=== PATIENT | female | born 1970 | race Two or more races ===

== ENCOUNTER 2017-09-01 15:25 | Emergency (ER) | payer OTHER ==
[2017-09-01 15:34] VITALS: BP 125/68; BMI 29.9
--- NOTE | 2017-09-01 16:03 | PDOC ---
History of Present Illness - General History Source: Patient Exam Limitations: No Limitations - History of Present Illness Initial Comments: 09/01/17 16:05 The patient is a 47 year old female, with no significant past medical history who presents to the emergency department with cough, fever, and body chills/ aches for about 2 days. She reports having sensations of being cold. She denies getting the flu shot this year. She has additional complaints of chest and throat pain. The patient ranks her pain a 8/10 in pain intensity. She reports taking Advil with no alleviation of her pain. She denies recent chills, headache or dizziness. She denies recent nausea, vomit, diarrhea or constipation. She denies recent dysuria, frequency, urgency or hematuria. She denies recent shortness of breath. Allergies: NKA Past surgical history: None reported. Social history: Nonsmoker. Denies EtOH use and recreational drug use. <Frank Ho - Last Filed: 09/01/17 16:05> <Tiffany Hansen - Last Filed: 09/01/17 21:02> - General Chief Complaint: Respiratory Stated Complaint: COUGH, BODY ACHES Time Seen by Provider: 09/01/17 15:42 Past History <Frank Ho - Last Filed: 09/01/17 16:05> - Past Medical History COPD: No Other medical history: DENIES - Suicide/Smoking/Psychosocial Hx Smoking Status: No Smoking History: Never smoked Have you smoked in the past 12 months: No Number of Cigarettes Smoked Daily: 0 Hx Alcohol Use: No Drug/Substance Use Hx: No <Tiffany Hansen - Last Filed: 09/01/17 21:02> - Past Medical History Allergies/Adverse Reactions: Allergies Allergy/AdvReac Type Severity Reaction Status Date / Time No Known Allergies Allergy Verified 09/01/17 15:31 Home Medications: Ambulatory Orders Ibuprofen [Motrin -] 600 mg PO TID PRN #21 tablet 09/01/17 Oseltamivir Phosphate [Tamiflu -] 75 mg PO BID #10 capsule 09/01/17 Review of Systems - Review of Systems Able to Perform ROS?: Yes Comments:: 09/01/17 16:05 GENERAL/CONSTITUTIONAL: +fever and chills. No weakness. +body aches. HEAD, EYES, EARS, NOSE AND THROAT: No change in vision. No ear pain or discharge. +sore throat. CARDIOVASCULAR: +chest pain No shortness of breath. RESPIRATORY: No cough, wheezing, or hemoptysis. GASTROINTESTINAL: No nausea, vomiting, diarrhea or constipation. GENITOURINARY: No dysuria, frequency, or change in urination. MUSCULOSKELETAL: No joint or muscle swelling or pain. No neck or back pain. SKIN: No rash NEUROLOGIC: No headache, vertigo, loss of consciousness, or change in strength/ sensation. ENDOCRINE: No increased thirst. No abnormal weight change. HEMATOLOGIC/LYMPHATIC: No anemia, easy bleeding, or history of blood clots. ALLERGIC/IMMUNOLOGIC: No hives or skin allergy. <Frank Ho - Last Filed: 09/01/17 16:05> *Physical Exam - Vital Signs Last Vital Signs Temp Pulse Resp BP Pulse Ox 100 F H 92 H 18 125/68 96 09/01/17 15:25 09/01/17 15:25 09/01/17 15:25 09/01/17 15:25 09/01/17 15:25 - Physical Exam Comments: 09/01/17 16:05 GENERAL: Awake, alert, and fully oriented, appears ill but non-toxic HEAD: No signs of trauma EYES: PERRLA, EOMI, sclera anicteric, conjunctival injection ENT: Auricles normal inspection, hearing grossly normal, nares patent, oropharynx clear without exudates. Dry mucosa NECK: Normal ROM, supple, no lymphadenopathy, JVD, or masses LUNGS: Intermittent barking cough. Breath sounds equal, clear to auscultation bilaterally. No wheezes, and no crackles HEART: Regular rate and rhythm, normal S1 and S2, no murmurs, rubs or gallops ABDOMEN: Soft, nontender, normoactive bowel sounds. No guarding, no rebound. No masses EXTREMITIES: Normal range of motion, no edema. No clubbing or cyanosis. No cords, erythema, or tenderness NEUROLOGICAL: Cranial nerves II through XII grossly intact. Normal speech, normal gait SKIN: Warm, Dry, normal turgor, no rashes or lesions noted. <Frank Ho - Last Filed: 09/01/17 16:05> - Vital Signs Last Vital Signs Temp Pulse Resp BP Pulse Ox 100 F H 92 H 18 125/68 96 09/01/17 15:25 09/01/17 15:25 09/01/17 15:25 09/01/17 15:25 09/01/17 15:25 <Tiffany Hansen - Last Filed: 09/01/17 21:02> *DC/Admit/Observation/Transfer - Attestations Scribe Attestion: 09/01/17 16:05 Documentation prepared by Frank Ho, acting as medical driver for Tiffany Hansen MD. <Frank Ho - Last Filed: 09/01/17 16:05> - Discharge Dispostion Admit: No <Tiffany Hansen - Last Filed: 09/01/17 21:02> Diagnosis at time of Disposition: Upper respiratory infection Qualifiers: URI type: unspecified URI Qualified Code(s): J06.9 - Acute upper respiratory infection, unspecified - Discharge Dispostion Disposition: HOME Condition at time of disposition: Stable - Prescriptions Prescriptions: Ibuprofen [Motrin -] 600 mg PO TID PRN #21 tablet PRN Reason: Fever Oseltamivir Phosphate [Tamiflu -] 75 mg PO BID #10 capsule - Patient Instructions Printed Discharge Instructions: DI for Viral Upper Respiratory Infection -- Adult, DI for Influenza -- Adult
[2017-09-01] MEDS ORDERED: IBUPROFEN 600 MG TABLET (FP) PO ONE ×2 (16:04→16:12)
[2017-09-01] MEDS ORDERED: ALBUTEROL SO4 0.083% IH SOL 2.5 MG/3 ML VIAL.NEB. NEB ONE (16:04)
[2017-09-01 19:56] VITALS: PULSE 73; TEMP 98.5
== END 2017-09-01 19:45 | disposition home or self-care (01) ==
LOC: FER 15:25
PROC: 3E0F7GC Introduction of Other Therapeutic Substance into Respiratory Tract, Via Natural or Artificial Opening (ICD-10-PCS; principal; 2017-09-01)
DX: J06.9 Acute upper respiratory infection, unspecified (principal)
CPT/HCPCS: 71046-TC; 87804; 99283-25

== ENCOUNTER 2020-12-29 11:18 | Emergency (ER) | payer OTHER ==
[2020-12-29 11:23] VITALS: TEMP 99; BMI 29.9
[2020-12-29] MEDS ORDERED: LACTATED RINGERS SOLUTION 1000 ML INFUS.BAG IV ONE (11:41)
[2020-12-29] MEDS ORDERED: METOCLOPRAMIDE HCL INJECTION 10 MG/2 ML VIAL IVPUSH ONE (11:41)
[2020-12-29] MEDS ORDERED: METOCLOPRAMIDE HCL INJECTION 10 MG/2 ML VIAL ONE (11:43)
[2020-12-29 12:04] LABS: BASO % 3.3 % (0-2.0); EOS % 2.2 % (0-4.5); HEMATOCRIT 38.7 % (32.4-45.2); HEMOGLOBIN 12.7 GM/dl (10.7-15.3); MCH 28.5 pg (25.7-33.7); MCHC 32.9 g/dl (32.0-36.0); MEAN CELL VOLUME 86.9 fl (80-96); MEAN PLT VOLUME 7.7 fl (7.5-11.1); MONO % 7.4 % (3.8-10.2); NEUT % 45.1 % (42.8-82.8); PLATELET COUNT 232 K/MM3 (134-434); RBC 4.46 M/mm3 (3.60-5.2); RDW 13.1 % (11.6-15.6); WHITE BLOOD COUNT 4.9 K/mm3 (4.0-10.8)
[2020-12-29 12:14] LABS: CREATININE 0.7 mg/dl (0.55-1.3)
[2020-12-29 13:44] VITALS: BP 142/68; PULSE 59
== END 2020-12-29 13:45 | disposition home or self-care (01) ==
LOC: FER 11:18
PROC: 3E033NZ Introduction of Analgesics, Hypnotics, Sedatives into Peripheral Vein, Percutaneous Approach (ICD-10-PCS; principal; 2020-12-29)
DX: R42 Dizziness and giddiness (principal)
CPT/HCPCS: 36415; 80048; 85025; 99284-25

== ENCOUNTER 2021-06-09 14:39 | Emergency (ER) | payer OTHER ==
[2021-06-09 15:06] VITALS: BP 140/90; PULSE 73; TEMP 98.5; BMI 27.4
[2021-06-09] MEDS ORDERED: SODIUM CHLORIDE 1,000 ML IV ONE (15:07)
[2021-06-09] MEDS ORDERED: KETOROLAC TROMETHAMINE 30 MG/1 ML VIAL IVPUSH ONE (15:07)
[2021-06-09] MEDS ORDERED: KETOROLAC TROMETHAMINE 15 MG/ML VIAL ONE ×2 (15:17→15:26)
[2021-06-09 15:31] LABS: EPITHELIAL CELLS FEW /hpf
[2021-06-09 15:46] LABS: HEMATOCRIT 39.2 % (32.4-45.2); HEMOGLOBIN 12.9 GM/dl (10.7-15.3); MCH 28.8 pg (25.7-33.7); MEAN CELL VOLUME 87.2 fl (80-96); MEAN PLT VOLUME 7.6 fl (7.5-11.1); PLATELET COUNT 225 10^3/uL (134-434); RBC 4.49 M/mm3 (3.60-5.2); RDW 12.8 % (11.6-15.6); WHITE BLOOD COUNT 5.4 K/mm3 (4.0-10.8)
[2021-06-09 15:54] LABS: ALBUMIN 3.8 g/dl (3.4-5.0); BILIRUBIN,TOTAL 0.5 mg/dl (0.2-1); CALCIUM 9.2 mg/dl (8.5-10); CREATININE 0.7 mg/dl (0.55-1.3); TOT PROT 7.6 g/dl (6.4-8.2)
[2021-06-09 17:07] LABS: PLATELET ESTIMATE ADEQUATE
== END 2021-06-09 16:46 | disposition home or self-care (01) ==
LOC: FER 14:39
PROC: 3E033GC Introduction of Other Therapeutic Substance into Peripheral Vein, Percutaneous Approach (ICD-10-PCS; principal; 2021-06-09)
DX: S39.012A Strain of muscle, fascia and tendon of lower back, initial encounter (principal); X50.0XXA Overexertion from strenuous movement or load, initial encounter
CPT/HCPCS: 36415; 80053; 81003; 81015; 85025; 99284-25

== ENCOUNTER 2021-12-03 11:28 | Emergency (ER) | payer OTHER ==
[2021-12-03] MEDS ORDERED: TETRACAINE 0.5% OPHTH SOLN 2 ML BOTTLE OD ONE (11:32)
[2021-12-03] MEDS ORDERED: FLUORESCEIN NA 1 EA STRIP OD ONE (11:33)
[2021-12-03 11:42] VITALS: BP 132/85; PULSE 60; TEMP 98.3; BMI 24.3
[2021-12-03] MEDS ORDERED: FLUORESCEIN NA 1 EA STRIP ONE (12:03)
[2021-12-03] MEDS ORDERED: TETRACAINE 0.5% OPHTH SOLN 2 ML BOTTLE ONE (12:03)
== END 2021-12-03 12:52 | disposition home or self-care (01) ==
LOC: FER 11:28
DX: H10.32 Unspecified acute conjunctivitis, left eye (principal)
CPT/HCPCS: 76512; 99283-25

== ENCOUNTER 2022-07-08 08:50 | Emergency (ER) | payer OTHER ==
[2022-07-08 08:55] VITALS: BP 116/74; PULSE 88; RESP 18; TEMP 99.7; BMI 26.6
== END 2022-07-08 09:37 | disposition home or self-care (01) ==
LOC: FER 08:50
DX: J06.9 Acute upper respiratory infection, unspecified (principal)
CPT/HCPCS: 0241U-QW; 99283-25

== ENCOUNTER 2022-08-25 16:06 | Emergency (ER) | payer OTHER ==
[2022-08-25 16:10] VITALS: BP 137/72; PULSE 70; RESP 18; TEMP 98.1; BMI 22.1
[2022-08-25] MEDS ORDERED: METOCLOPRAMIDE HCL 10 MG TABLET (FP) PO ONE ×2 (16:15→16:34)
[2022-08-25] MEDS ORDERED: ACETAMINOPHEN 325 MG TABLET (FP) PO ONE (16:15)
[2022-08-25] MEDS ORDERED: KETOROLAC TROMETHAMINE 30 MG/1 ML VIAL IM ONE (16:15)
[2022-08-25] MEDS ORDERED: diphenhydrAMINE HCL 25 MG CAPSULE (FP) PO ONE ×3 (16:15→16:39)
[2022-08-25] MEDS ORDERED: KETOROLAC TROMETHAMINE 30 MG/1 ML VIAL ONE (16:34)
[2022-08-25] MEDS ORDERED: ACETAMINOPHEN 325 MG TABLET (FP) ONE (16:34)
[2022-08-25] MEDS ORDERED: SODIUM CHLORIDE 0.9% 500 ML INFUS.BAG IV ONE (18:10)
[2022-08-25 18:24] LABS: HEMATOCRIT 35.2 % (32.4-45.2); HEMOGLOBIN 12.6 G/dL (10.7-15.3); MCH 30.7 pg (25.7-33.7); MCHC 35.7 g/dl (32.0-36.0); MEAN CELL VOLUME 85.8 fl (80-96); MEAN PLT VOLUME 7.4 fl (7.5-11.1); PLATELET COUNT 156.9 10^3/uL (134-434); RDW 13.9 % (11.6-15.6); WHITE BLOOD COUNT 3.5 10^3/uL (4.0-10.8)
[2022-08-25 19:06] LABS: ALBUMIN 3.7 g/dl (3.4-5.0); BILIRUBIN,TOTAL 0.5 mg/dl (0.2-1); CALCIUM 8.9 mg/dl (8.5-10); CREATININE 0.7 mg/dl (0.55-1.3); MAGNESIUM 1.9 mg/dL (1.8-2.4); TOT PROT 7.2 g/dl (6.4-8.2)
== END 2022-08-25 19:35 | disposition home or self-care (01) ==
LOC: FER 16:06
PROC: 3E023GC Introduction of Other Therapeutic Substance into Muscle, Percutaneous Approach (ICD-10-PCS; principal; 2022-08-25)
DX: U07.1 COVID-19 (principal); G43.909 Migraine, unspecified, not intractable, without status migrainosus
CPT/HCPCS: 0241U-QW; 36415; 80053; 83735; 85027; 99284-25

== ENCOUNTER 2022-11-01 07:25 | Emergency (ER) | payer OTHER ==
[2022-11-01 07:46] VITALS: BP 156/93; PULSE 65; RESP 18; TEMP 97.8; BMI 29.9
[2022-11-01] MEDS ORDERED: diazePAM 5 MG TABLET PO ONE (08:07)
[2022-11-01] MEDS ORDERED: KETOROLAC TROMETHAMINE 30 MG/1 ML VIAL IM ONE (08:07)
[2022-11-01] MEDS ORDERED: KETOROLAC TROMETHAMINE 30 MG/1 ML VIAL ONE (08:25)
[2022-11-01] MEDS ORDERED: diazePAM 5 MG TABLET ONE (08:25)
== END 2022-11-01 09:43 | disposition home or self-care (01) ==
LOC: FER 07:25
PROC: 3E0233Z Introduction of Anti-inflammatory into Muscle, Percutaneous Approach (ICD-10-PCS; principal; 2022-11-01)
DX: S39.012A Strain of muscle, fascia and tendon of lower back, initial encounter (principal); X58.XXXA Exposure to other specified factors, initial encounter
CPT/HCPCS: 72100-TC-FY; 99284-25

== ENCOUNTER 2023-08-09 11:20 | Emergency (ER) | payer OTHER ==
[2023-08-09 11:36] VITALS: BP 157/64; PULSE 64; RESP 18; TEMP 97.3; BMI 23.6
[2023-08-09] MEDS ORDERED: ACETAMINOPHEN 1000 MG/100 ML BAG IVPB ONE (11:55)
[2023-08-09] MEDS ORDERED: MECLIZINE HCL 25 MG TABLET (FP) PO ONE ×2 (11:55→14:29)
[2023-08-09] MEDS ORDERED: ACETAMINOPHEN INJECTION 100 ML IVPB ONE (12:08)
[2023-08-09] MEDS ORDERED: MECLIZINE HCL 25 MG TABLET (FP) ONE ×3 (12:08→14:32)
[2023-08-09 12:34] LABS: HEMATOCRIT 38.4 % (32.4-45.2); HEMOGLOBIN 12.8 G/dL (10.7-15.3); MCHC 33.3 g/dl (32.0-36.0); MEAN CELL VOLUME 87.2 fl (80-96); MEAN PLT VOLUME 7.8 fl (7.5-11.1); PLATELET COUNT 193.7 10^3/uL (134-434); RDW 14.2 % (11.6-15.6); WHITE BLOOD COUNT 5.4 10^3/uL (4.0-10.8)
[2023-08-09 13:49] LABS: ALBUMIN 4.3 g/dl (3.4-5.0); BILIRUBIN,TOTAL 0.3 mg/dl (0.2-1); CALCIUM 9.6 mg/dl (8.5-10.1); CREATININE 0.7 mg/dl (0.6-1.3); POTASSIUM 3.8 mmol/L (3.5-5.1); TOT PROT 7.4 g/dl (6.4-8.2)
[2023-08-09 13:52] LABS: PLATELET ESTIMATE ADEQUATE
== END 2023-08-09 15:05 | disposition home or self-care (01) ==
LOC: FER 11:20
PROC: 3E033NZ Introduction of Analgesics, Hypnotics, Sedatives into Peripheral Vein, Percutaneous Approach (ICD-10-PCS; principal; 2023-08-09)
DX: R42 Dizziness and giddiness (principal); R07.9 Chest pain, unspecified; Z20.822 Contact with and (suspected) exposure to COVID-19
CPT/HCPCS: 0241U-QW; 36415; 71045-TC-FY; 80053; 84484; 85027; 93005; 99285-25

== ENCOUNTER 2023-12-03 07:02 | Emergency (ER) | payer OTHER ==
[2023-12-03 07:22] VITALS: BP 148/75; PULSE 88; RESP 18; TEMP 100.8; BMI 27.3
[2023-12-03] MEDS ORDERED: IBUPROFEN 600 MG TABLET (FP) PO ONE (07:38)
[2023-12-03] MEDS: IBUPROFEN 600 MG TABLET (FP) PO ONE (07:46)
[2023-12-03 09:51] LABS: THROAT:GRP A STREP NOT DETECTED (NOTDETECTED)
== END 2023-12-03 09:37 | disposition home or self-care (01) ==
LOC: FER 07:02
DX: J02.9 Acute pharyngitis, unspecified (principal); R50.9 Fever, unspecified; R05.9 Cough, unspecified; J06.9 Acute upper respiratory infection, unspecified; Z20.822 Contact with and (suspected) exposure to COVID-19
CPT/HCPCS: 0241U-QW; 71046-TC-FY; 87651; 99284-25